=== PATIENT | female | born 1970 | race Caucasian/White ===

== ENCOUNTER → 2019-11-06 | Outpatient (CLI) | payer OTHER, SELFPAY ==
[2019-11-06 14:27] VITALS: BMI 30.9
[2019-11-11 20:38] LABS: HPV APTIMA, High Risk Negative (Negative)
== END | disposition home or self-care (01) ==
PROVIDERS: PCP Family Medicine; Referring Provider Nurse Practitioner Women's Health; Visit Provider Nurse Practitioner Women's Health
DX: Z12.4 Encounter for screening for malignant neoplasm of cervix (principal)
CPT/HCPCS: 87624; 88175; G0145

== ENCOUNTER → 2019-12-11 11:23 | Outpatient (CLI) | payer OTHER, SELFPAY ==
[2019-11-06 14:27] VITALS: BMI 30.9
[2019-11-25 16:51] VITALS: BMI 30.9
--- NOTE | 2019-12-11 | EMB_PTH ---
PATIENT: MARCOS GUTIERREZ LOC: [facility] U#:[id number] AGE/SX: 54/F ROOM: RE12/11/[address]: NITISH Zapata : 1970 BED: DIS: SPEC #: [id number] RECD: 12/11/19 16:18 STATUS: WILIAN SINDY #: [id number] MILES: 12/11/19 00:[address]: Natalee Jorge NP DEPT: SURGICAL PATHOLOGY RECD BY: Celia Mariee ENTERED: 12/12/19 08:30 SP TYPE: ENDOPilar BX/C KATT DR: Abbey Landeros PA-C Tissues: Endometrium, NOS Procedures: Surgery Specimen Level IV HEADER OPERATION: Endometrial biopsy PRE-OP DIAGNOSIS: Abnormal uterine bleeding TISSUE SUBMITTED: Endometrial biopsy MICROSCOPIC DIAGNOSIS Endometrial biopsy: Secretory endometrium. SJ:franci 12/15/19 MICROSCOPIC DESCRIPTION Slides are reviewed. GROSS DESCRIPTION Received is one container labeled with the patient's name and not further designated. The specimen consists of multiple irregular fragments of hull-pink to hemorrhagic soft tissue that in aggregate measure 3 x 2.5 x 0.3 cm. The specimen is totally submitted in one cassette. / SJ:franci 12/12/19 TC:4 CPT: 26509
--- NOTE | 2019-12-11 11:26 | US_ITS ---
STUDY: ULTRASOUND OF THE FEMALE PELVIS - COMPLETE REASON FOR EXAM: Female, 49 years old. AUB FREQUENT AND HEAVY LMP: 11/27/2019 TECHNIQUE: Transabdominal and Transvaginal TECHNICAL QUALITY: Adequate. COMPARISON: None. FINDINGS: The uterus is anteverted and is in a midline position. The uterus measures 9.1 cm x 5.2 cm x 4.0 cm. Normal uterine cervix. The endometrium measures 6.0 mm in thickness, and is heterogeneous (striated). There is no demonstrated endometrial mass. There is a 1.8 cm x 1.7 cm x 1.5 cm fundal fibroid. Trace amount of fluid is seen in the endometrium. I.U.D. - The patient does not have an I.U.D. The right ovary is visualized. The right ovary measures 2.7 cm x 1.6 cm x 1.7 cm. There is no right ovarian cyst or ovarian mass. There is no visualized right adnexal mass or complex lesion. There is normal arterial and normal venous vascularity. The left ovary is visualized. The left ovary measures 3.6 cm x 2.7 cm x 2.1 cm. There is no left ovarian cyst or ovarian mass. There is no visualized left adnexal mass or complex lesion. There is normal arterial and normal venous vascularity. There is no fluid in the cul-de-sac. The pre void volume of the bladder was 540 ml. US/Pelvic (Non ) IMPRESSION: Small uterine fibroid. Electronically Signed: Patrice Reyes, at 15:13 EST , Service support ,
--- NOTE | 2019-12-11 11:26 | US_ITS ---
STUDY: ULTRASOUND OF THE FEMALE PELVIS - COMPLETE REASON FOR EXAM: Female, 49 years old. AUB FREQUENT AND HEAVY LMP: 11/27/2019 TECHNIQUE: Transabdominal and Transvaginal TECHNICAL QUALITY: Adequate. COMPARISON: None. FINDINGS: The uterus is anteverted and is in a midline position. The uterus measures 9.1 cm x 5.2 cm x 4.0 cm. Normal uterine cervix. The endometrium measures 6.0 mm in thickness, and is heterogeneous (striated). There is no demonstrated endometrial mass. There is a 1.8 cm x 1.7 cm x 1.5 cm fundal fibroid. Trace amount of fluid is seen in the endometrium. I.U.D. - The patient does not have an I.U.D. The right ovary is visualized. The right ovary measures 2.7 cm x 1.6 cm x 1.7 cm. There is no right ovarian cyst or ovarian mass. There is no visualized right adnexal mass or complex lesion. There is normal arterial and normal venous vascularity. The left ovary is visualized. The left ovary measures 3.6 cm x 2.7 cm x 2.1 cm. There is no left ovarian cyst or ovarian mass. There is no visualized left adnexal mass or complex lesion. There is normal arterial and normal venous vascularity. There is no fluid in the cul-de-sac. The pre void volume of the bladder was 540 ml. US/Transvaginal Non- IMPRESSION: Small uterine fibroid. Electronically Signed: Patrice Reyes, at 15:13 EST , Service support ,
--- NOTE | 2019-12-11 12:32 | BI_ITS ---
MAMMOGRAPHY - BILATERAL SCREENING REASON FOR EXAM: Female, 49 years old. Routine annual screening examination. PERTINENT HISTORY: Non-contributory. TECHNIQUE: Digital bilateral breast scarlet (3D mammographic acquisition) in the CC and MLO projections. 2-D mediolateral oblique (MLO) and craniocaudad (CC) views of both breasts were obtained. CAD: Full Field Digital Mammography with Computer Added Detection was performed. COMPARISON: Comparison is made with prior outside examination dated 02/07/2018. FINDINGS: Breast Composition: The breasts are extremely dense, which lowers the sensitivity of mammography. There are no dominant masses or suspicious calcifications. No other significant abnormalities are identified. There has been no significant change since the prior study. BI/SCREEN MAMM (CAD) W/SCARLET BILAT IMPRESSION: Stable bilateral screening mammogram. Yearly follow-up mammogram recommended. (A) ASSESSMENT CATEGORY: BIRADS Category 1: Negative. A letter regarding these results will be sent to the patient by the facility within 30 days. Approximately 10% of breast cancers are not detected by mammography. A normal mammogram should not delay biopsy of a clinically suspicious abnormality. [id number] Electronically Signed: Patrice Reyes, at 15:18 EST , Service support ,
== END ==
PROVIDERS: PCP Family Medicine; Referring Provider Nurse Practitioner Women's Health; Visit Provider Nurse Practitioner Women's Health
DX: N93.9 Abnormal uterine and vaginal bleeding, unspecified (principal); Z12.31 Encounter for screening mammogram for malignant neoplasm of breast
CPT/HCPCS: 76830; 76856; 77063; 77067; 88305

== ENCOUNTER 2020-03-26 05:55 | Day surgery (SDC) | payer OTHER, SELFPAY ==
[2020-01-22 13:33] VITALS: BMI 31.1
[2020-03-16 15:05] VITALS: BMI 31.8
[2020-03-24 15:05] LABS: Hematocrit 40.1 % (37-47); Hemoglobin 13.2 g/dL (12.0-15.0); Mean Corp Hgb Conc 32.9 g/dL (32-36); Mean Corpuscular Hgb 28.7 pg (27.0-32.0); Mean Corpuscular Volume 87.2 fL (81-99); Mean Platelet Vol. 9.2 fl (6.2-12.0); Platelet Count 356 K/mm3 (150-450); RBC Distribution Width CV 12.7 % (11.6-14.6); RBC Distribution Width SD 40.1 fl (35.1-43.9)
[2020-03-26] VITALS (9 sets, daily range): BP systolic 118–177; BP diastolic 73–95; PULSE 59–78; RESP 16; TEMP 36.4–36.7; O2SAT 95–100; BMI 32.2
[2020-03-26 06:27] LABS: Internal QC Validated? YES +Cl - CLEAR BKGD
[2020-03-26 06:28] LABS: Pregnancy, Urine Negative Negative
[2020-03-26] MEDS: Lactated Ringers 1,000 ML 100 ML IV (06:51)
--- NOTE | 2020-03-26 07:30 | EMB_PTH ---
PATIENT: MARCOS GUTIERREZ [place] [facility] [place][id number] AGE/SX: 50/F ROOM: RE03/26/[address]: Dr. Mckenna Suarez MD : 1970 BED: DIS: 03/26/2020 SPEC #: [id number] RECD: 03/26/20 10:55 STATUS: WILIAN RELubna #: [id number] MILES: 03/26/20 07:[address]: Mckenna Suarez DEPT: SURGICAL PATHOLOGY RECD BY: Marianela Francois ENTERED: 03/26/20 12:33 SP TYPE: ENDOM BX/C KATT DR: Abbey Landeros PA-C Tissues: Endometrium, NOS Procedures: Surgery Specimen Level IV HEADER OPERATION: Hysteroscopy, D & C Chrystal PRE-OP DIAGNOSIS: Abnormal uterine bleeding TISSUE SUBMITTED: Endometrial curettings MICROSCOPIC DIAGNOSIS Endometrial curettings: Fragments of early secretory endometrium with extensive glandular and stromal breakdown. Fragments of benign ecto- and endocervical mucosa. See comment. SJ:franci 03/29/2020 COMMENT Clinical correlation and appropriate follow up are necessary. MICROSCOPIC DESCRIPTION Slides are reviewed. GROSS DESCRIPTION Received in fixative is one container labeled with the patient's name and designated endometrial curettings. The specimen consists of multiple irregular fragments of red-hull soft tissue that in aggregate measure 2.5 x 2 x 0.2 cm. The specimen is totally submitted in one cassette. / AM:franci 03/26/20 TC:5 CPT: 64167
[2020-03-26] MEDS: Lidocaine 1% (20 ml mdv) 20 ML Vial (07:45)
[2020-03-26] MEDS: Lubricating Jelly 60 GM Tube 30 GM TOPICAL (07:45)
--- NOTE | 2020-03-26 07:56 | HP.PCM_ITS ---
- Problem List (1) Leiomyoma Status: Acute Comment: <2cm fundal (2) Menorrhagia with irregular cycle Status: Acute Comment: discussed options plan jaelyn ablation. (3) Stress incontinence Status: Acute Comment: urogyn consult History and Physical Date of Admission: 03/26/20 Intake Vital Signs 03/16/20 Height 5 ft 5 in 03/16/20 Weight: 191 lb 03/16/20 BMI 31.8 03/16/20 BP 121/77 H Intake Visit Reasons: jaelyn ablation Chief Complaint: pre op jaelyn ablation Merchant Mariner Required: No Is patient in pain?: No Allergies aspirin Allergy (Mild, Verified 03/16/20 15:06) Unknown Penicillins Allergy (Mild, Verified 03/16/20 15:06) Unknown Medications albuterol sulfate 90 mcg/actuation breath activated powder inhaler 2 inh INHALATION Q6H PRN 11/06/19 [History Confirmed 03/16/20] alprazolam 0.25 mg tablet 0.25 mg PO QHS PRN 11/06/19 [History Confirmed 03/16/20] ascorbate calcium (vitamin C) 500 mg tablet 500 mg PO DAILY 11/06/19 [History Confirmed 03/16/20] cetirizine 10 mg capsule 10 mg PO DAILY 11/06/19 [History Confirmed 03/16/20] cholecalciferol (vitamin D3) 50 mcg (2,000 unit) capsule 50 mcg PO DAILY 11/06/19 [History Confirmed 03/16/20] dim complex PO 11/06/19 [History Confirmed 03/16/20] ferrous sulfate 325 mg (65 mg iron) tablet 325 mg PO DAILY 11/06/19 [History Confirmed 03/16/20] fluticasone 250 mcg-salmeterol 50 mcg/dose blistr powdr for inhalation 1 inh INHALATION BID 11/06/19 [History Confirmed 03/16/20] omega-3 fatty acids 1,000 mg capsule 1,000 mg PO DAILY 11/06/19 [History Confirmed 03/16/20] omeprazole 40 mg capsule,delayed release 40 mg PO DAILY 11/06/19 [History Confirmed 03/16/20] zolpidem 5 mg tablet 5 mg PO QHS PRN 11/06/19 [History Confirmed 03/16/20] fluoxetine 20 mg capsule 40 mg PO DAILY cap 12/11/19 [History Confirmed 03/16/20] ascorbic acid (vitamin C) 500 mg capsule mg PO 01/22/20 [History Confirmed 03/16/20] zinc 50 mg tablet 50 mg PO DAILY 01/22/20 [History Confirmed 03/16/20] rosuvastatin 5 mg tablet 5 mg PO DAILY 03/16/20 [History Confirmed 03/16/20] Is last menstrual period known: No Post menopausal: No Patient : No : No PFSH Medical History Asthma (Acute) Surgical History History of carpal tunnel repair (Acute) History of removal of ovarian cyst (Acute) History of surgical removal of ganglion cyst (Acute) S/P (Acute) Family History Mother Diabetes Heart disease Sister Myocardial infarction Father Kidney disease Social History (Updated 03/19/20 @ 07:[address] Mckenna Suarez MD) household members: spouse, children number of children: 3 current occupational status: employed current occupation: [employer] history of recent travel: No sexually active: Yes Electronic Cigarette Use: with nicotine alcohol intake: current alcohol intake frequency: a few times a month substance use type: does not use what type of physical activity do you participate in: walking, bicycling seatbelt use: always do you feel safe at home: Yes additional social history: - Ramesh HPI jaelyn ablation: Details: MARCOS GUTIERREZ is a 50 year old who presents for preop exam. She has heavy and irregular menses and is planning a Jaelyn ablation. Female Reproductive History Cycle Length: 21-35 Bleeding Duration: 10 Control Method: Vasectomy Questions: Metorrhagia: Yes, Sexually active: Yes, Dyspareunia: No, PCB: No Pregancy History 2 Elective abortions Hx Para 2 Spontaneous abortions Hx # Term Pregnancies Ectopic pregnancies Hx # Pregnancies Multiple births # of living children 2 Past Pregnancies Del. Date Name GA/Weeks Outcome Route Bth Weight Gen Labor Lgth Anesthesia Del Locatn Provider FOB Unknown Shalini 1991 Unknown Gorge 1996 Unknown Lorie 2010 ROS Const Constitutional: Denies fatigue, fever(s), headache(s), increased appetite, poor appetite, weight gain or weight loss ENT ENT: Reports system reviewed and no additional complaints, except as docu Cardio Card: Denies chest pain Resp Resp: Denies cough or dyspnea GI GI: Reports as per HPI; denies abdominal pain, constipation, nausea or vomiting : Reports as per HPI and urinary incontinence (stress); denies difficulty urinating, painful urination, blood in urine, nipple discharge, pelvic pain, urinary frequency, urinary hesitancy, urinary urgency, vaginal discharge, vaginal dryness, vaginal odor, vaginal itching or other Musc Musc: Denies joint pain, back pain or muscle weakness Skin Skin/Breast: Denies hair loss, change in hair, dry skin, breast lump, breast pain, breast skin changes or nipple discharge Neuro Neuro: Reports system reviewed and no additional complaints, except as docu Psych Psych: Reports system reviewed and no additional complaints, except as docu Endo Endo: Denies cold intolerance, excessive sweating, heat intolerance or increased thirst Garrett/Lymph Hematologic/Lymphatic: Denies easy bleeding, Denies easy bruising, Denies enlarged lymph nodes Exam Const General: cooperative, healthy appearing, comfortable, no acute distress, well developed Orientation: alert [facility] Head: normal to inspection, normocephalic Ears: hearing grossly normal bilaterally, external ears normal Nose: external nose normal, nares normal Face and sinus: normal facial exam Neck Neck: normal visual inspection, no lymphadenopathy, trachea midline Thyroid: thyroid normal Chest Chest palpation & inspection: normal inspection of the chest Resp Effort & Inspection: normal respiratory effort Auscultation: clear to auscultation bilaterally Cardio Rate: regular rate Rhythm: regular rhythm Heart Sounds: S1 normal, S2 normal GI Inspection: normal to inspection, non-distended Palpation: soft, no hepatosplenomegaly Musc Other: gross motor intact no deficits, full bilateral strength Skin General: no rashes or lesions noted Neuro General: alert, awake, moves all extremities, no focal motor deficits Motor: muscle tone normal throughout Extrem General: normal to inspection, no pedal edema Psych Appearance: grossly normal Mental Status: mental status grossly normal Affect: normal affect Speech and Movement: speech and movement normal Assessment & Plan Problems 1. Menorrhagia with irregular cycle N92.1 discussed options plan jaelyn ablation. Plan After discussing the patient's diagnosis and treatment plan options, patient wishes to proceed with surgical management. I have discussed with the patient the risks, benefits, and alternatives of the procedure which include but are not limited to risks of anesthesia, bleeding, infection, possible damage to bowel, bladder, or surrounding vasculature which could lead to additional surgery to evaluate any complications. Patient agrees to procedure and wishes to proceed. ACOG/uptodate references given for additional information regarding procedure. Coding Level of Care Code No Charge Diagnoses Menorrhagia with irregular cycle N92.1 UPDATE- I have seen the patient and performed any clinically relevant updates to the history and physical exam. Mckenna Suarez MD
--- NOTE | 2020-03-26 07:57 | OP.PCM_ITS ---
Problem List (1) Leiomyoma Status: Acute Comment: <2cm fundal (2) Menorrhagia with irregular cycle Status: Acute Comment: discussed options plan chrystal ablation. (3) Stress incontinence Status: Acute Comment: urogyn consult Report of Operation Date of Procedure: 03/26/20 Pre-Operative Diagnosis: aub Post-Operative Diagnosis: same Surgery/Procedure Performed:: Hysteroscopy Chrystal ablation D&C Description of Surgical Findings:: Normal uterine cavity Type of Anesthesia:: Local MAC Special Medications: toradol Specimen's removed: EMC Drains: None Estimated Blood Loss (mL): 50 Fluids Replaced: Fluids Description of Procedure: Patient was prepped and draped in a normal sterile fashion under MAC anesthesia. A weighted speculum was placed in the vagina and the anterior lip of the cervix was grasped with a single-tooth tenaculum. A paracervical block was placed with 1% lidocaine. Cervix was progressively dilated to allow passage of a 5 mm hysteroscope. The lining was fully visualized and noted to have no gross abnormalities. Uterine sounded to 8 cm. Curettage was performed and moderate amount of tissue removed, sent to pathology. The Chrystal device was opened but unable to expand and therefore the device was replaced and then reinserted into the cavity and the cavity length was found to be 4.5 cm. Device was inserted into the uterus and balloon inflated and device deployed. Integrity of the cavity was confirmed and a 2 minute treatment cycle was completed without complication. All instruments were removed from the vagina and excellent hemostasis was noted. Patient was awoken and taken to recovery in stable condit ion. - Admit VTE Documentation VTE Present on Admission: No VTE Mechan Device Prophylaxis: SCD's Multi Select Codes - Urinary/Genital Urinary/Genital CPT Codes: 16409 Chrystal/Novasure
--- NOTE | 2020-03-26 08:01 | DCINST_ITS ---
Discharge Diet: No Restrictions Discharge Activity: Return to Normal Activity, May Shower, May Take a Tub Bath Allergies/Adverse Reactions: Allergies aspirin Allergy (Mild, Verified 03/26/20 06:33) Unknown Penicillins Allergy (Mild, Verified 03/26/20 06:33) Unknown Medications to take at Discharge albuterol sulfate 90 mcg/actuation breath activated powder inhaler 2 inh INHALATION Q6H PRN 11/06/19 alprazolam 0.25 mg tablet 0.25 mg PO QHS PRN 11/06/19 ascorbate calcium (vitamin C) 500 mg tablet 500 mg PO DAILY 11/06/19 cetirizine 10 mg capsule 10 mg PO DAILY 11/06/19 cholecalciferol (vitamin D3) 50 mcg (2,000 unit) capsule 50 mcg PO DAILY 11/06/19 dim complex 1 tab PO DAILY 11/06/19 ferrous sulfate 325 mg (65 mg iron) tablet 325 mg PO DAILY 11/06/19 fluticasone 250 mcg-salmeterol 50 mcg/dose blistr powdr for inhalation 1 inh INHALATION BID 11/06/19 omega-3 fatty acids 1,000 mg capsule 1,000 mg PO DAILY 11/06/19 omeprazole 40 mg capsule,delayed release 40 mg PO DAILY 11/06/19 zolpidem 5 mg tablet 5 mg PO QHS PRN 11/06/19 fluoxetine 20 mg capsule 40 mg PO DAILY cap 12/11/19 zinc 50 mg tablet 50 mg PO DAILY 01/22/20 rosuvastatin 5 mg tablet 5 mg PO DAILY 03/16/20 Magnesium 200 mg PO DAILY 03/22/20 Primary Care Physician: Abbey Landeros PAKhloeC [Primary Care Provider] - Test Results: Test results from this visit will be discussed in further detail at your follow- up appointment, if applicable. Please Follow Up With: Mckenna Suarez MD - [phone]
== END 2020-03-26 10:00 | disposition home or self-care (01) ==
LOC: SDC 05:56 → AC 03-29 09:33
PROVIDERS: Anesthesiology; PCP Family Medicine; Referring Provider Obstetrics & Gynecology; Visit Provider Obstetrics & Gynecology
PROC: 0U5B8ZZ Destruction of Endometrium, Via Natural or Artificial Opening Endoscopic (ICD-10-PCS; CPT 58558; principal; 2020-03-26 07:15)
DX: N92.1 Excessive and frequent menstruation with irregular cycle (principal); N39.3 Stress incontinence (female) (male); K21.9 Gastro-esophageal reflux disease without esophagitis; E78.00 Pure hypercholesterolemia, unspecified; F41.9 Anxiety disorder, unspecified; F32.9 Major depressive disorder, single episode, unspecified; J45.909 Unspecified asthma, uncomplicated; Z79.899 Other long term (current) drug therapy; Z87.891 Personal history of nicotine dependence; Z20.822 Contact with and (suspected) exposure to COVID-19
CPT/HCPCS: 58563; 36415; 81025; 85027; 86850; 86900; 86901; 87426; 88305; C9803; J7120

== ENCOUNTER → 2023-01-18 | Outpatient (CLI) | payer OTHER, SELFPAY ==
--- NOTE | 2023-01-18 12:36 | BI_ITS ---
MAMMOGRAPHY - BILATERAL SCREENING REASON FOR EXAM: Female, 52 years old. Routine annual screening examination. PERTINENT HISTORY: Non-contributory. TECHNIQUE: Digital bilateral breast scarlet (3D mammographic acquisition) in the CC and MLO projections. 2-D mediolateral oblique (MLO) and craniocaudad (CC) views of both breasts were obtained. CAD: Full Field Digital Mammography with Computer Added Detection was performed. COMPARISON: Comparison is made with prior study December 11, 2019. FINDINGS: Breast Composition: The breasts are extremely dense, which lowers the sensitivity of mammography. There are no dominant masses or suspicious calcifications. No other significant abnormalities are identified. There has been no significant change since the prior study. BI/SCRN MAMM (CAD)W/SCARLET BILAT IMPRESSION: Stable bilateral screening mammogram. Yearly follow-up mammogram recommended. (A) ASSESSMENT CATEGORY: BIRADS Category 1: Negative. A letter regarding these results will be sent to the patient by the facility within 30 days. Approximately 10% of breast cancers are not detected by mammography. A normal mammogram should not delay biopsy of a clinically suspicious abnormality. [id number] Electronically Signed: Patrice Reyes MD at 13:56 EST ,
== END | disposition home or self-care (01) ==
LOC: OPBI 12:36
PROVIDERS: PCP Family Medicine; Referring Provider Obstetrics & Gynecology; Visit Provider Obstetrics & Gynecology
DX: Z12.31 Encounter for screening mammogram for malignant neoplasm of breast (principal)
CPT/HCPCS: 77063; 77067